=== PATIENT | female | born 1945 | race Caucasian/White ===

== ENCOUNTER → 2018-04-05 | Outpatient (CLI) | payer OTHER, MEDICARE | LOC: GMAE 10:34 | PROVIDERS: ATTEND Family Medicine | DX: Z00.01 Encounter for general adult medical examination with abnormal findings (principal) ==

== ENCOUNTER → 2018-10-03 | Outpatient (CLI) | payer OTHER, MEDICARE | LOC: GMAE 20:02 | PROVIDERS: ATTEND Family Medicine | DX: G56.92 Unspecified mononeuropathy of left upper limb (principal) ==

== ENCOUNTER → 2018-10-12 | Outpatient (CLI) | payer OTHER, MEDICARE | LOC: GMAE 09:01 | PROVIDERS: ATTEND Family Medicine | DX: G56.92 Unspecified mononeuropathy of left upper limb (principal); G56.91 Unspecified mononeuropathy of right upper limb; G60.3 Idiopathic progressive neuropathy ==

== ENCOUNTER 2019-03-16 04:51 | Emergency (ER) | payer OTHER, MEDICARE ==
[2019-03-16] MEDS ORDERED: ACETAMINOPHEN 500 MG TAB PO ONE (05:31)
--- NOTE | 2019-03-16 05:44 | ED.PDOC ---
History of Present Illness - General Chief Complaint: Trauma Stated Complaint: fall, Rt upper arm pain Time Seen by Provider: 03/16/19 05:31 Source: patient Additional Information: 73yo F who presents for R upper arm pain. The patient reports she fell over her dog this morning onto her right arm. She believes she felt something brake near the shoulder. She denies head or neck pain. No elbow, forearm or wrist dis comfort. No chest or abdominal pain. She has normal sensation in her R hand. She drove herself to the ED this morning. No other reported issues. - History of Present Illness Allergies/Adverse Reactions: Allergies NO KNOWN ALLERGY Allergy (Verified 03/16/19 05:05) Review of Systems - Review of Systems Constitutional: Denies: chills, fever EENTM: Denies: blurred vision, double vision Respiratory: Denies: cough, short of breath Cardiology: Denies: chest pain, palpitations Gastrointestinal/Abdominal: Denies: abdominal pain, vomiting Musculoskeletal: States: joint pain, muscle pain. Denies: back pain, neck pain Skin: Denies: change in color, rash Neurological: Denies: headache, numbness, paresthesia, weakness Past Medical History (General) - Patient Medical History Hx Hypertension: Yes Hx Diabetes: Yes Hx MRSA: Yes - Abdomen 2012 Surgical History: appendectomy, other - Vaccination History Hx Tetanus, Diphtheria Vaccination: No Hx Influenza Vaccination: Yes Hx Pneumococcal Vaccination: Yes - Social History Hx Tobacco Use: No Hx Alcohol Use: No Family Medical History - Family History Mother Family History: Unknown Living Status: Physical Exam - Physical Exam General Appearance: Alert, No apparent distress Neck: non-tender, full range of motion, supple Respiratory: lungs clear, normal breath sounds, no respiratory distress Cardiovascular/Chest: regular rate, rhythm, no edema Peripheral Pulses: radial,right: 2+ Gastrointestinal/Abdominal: non tender, soft Back Exam: normal inspection, no vertebral tenderness Extremity: normal capillary refill, other - Tenderness to proxima humerus. No clavicle tenderness. Elbow and wrist unremarkable. NV intact in R hand in all three nerve distributions. Neurologic: no motor/sensory deficits, alert, oriented x 3 Skin Exam: normal color, warm/dry Progress - Progress Progress: 03/16/19 06:32 Dr. Díaz notified of comminuted fracture with impaction, no dislocation. He is comfortable with plan for sling and close outpatient follow up. 03/16/19 06:51 The patient has a comminuted impacted humerus fracture. No other evident injury on exam. Her pain is well tolerated at this time. I have discussed follow up with Dr. Díaz who is comfortable with plan for sling and outpatient evaluation. Results discussed with the patient. She understands the importance of outpatient follow up. [facility] script was provided for pain control. Return warnings were discussed. It was a pleasure to care for this patient today. - EKG/XRAY/CT Xray Comments: Shoulder/Hum: Impacted comminuted prox humerus fx w/o disloc. See read. Departure - Departure Clinical Impression: Proximal humeral fracture Qualifiers: Encounter type: initial encounter Fracture type: closed Fracture morphology: unspecified fracture morphology Laterality: right Qualified Code(s): S42.201A - Unspecified fracture of upper end of right humerus, initial encounter for closed fracture Fall Qualifiers: Encounter type: initial encounter Qualified Code(s): W19.XXXA - Unspecified fall, initial encounter Time of Disposition: 06:30 Disposition: Discharge to Home or Self Care Condition: Good Departure Forms: ED Discharge - Pt. Copy, Patient Portal Self Enrollment Instructions: Shoulder Fracture (DC) Referrals: Alfredo Díaz MD [Active Staff] - 1-5 Days Comments: Shamar Medina, Physician #[id number]
--- NOTE | 2019-03-16 06:12 | RAD ---
EXAM: XR Right Humerus, 2 or More Views CLINICAL HISTORY: The patient is 73 years old and is Female; fall TECHNIQUE: Frontal and lateral views of the right humerus. COMPARISON: No relevant prior studies available. FINDINGS: BONES/JOINTS: Impacted and comminuted fracture of the proximal humerus is present. The humeral head remains located. No dislocation. SOFT TISSUES: Unremarkable. OTHER FINDINGS: The visualized lung is clear. IMPRESSION: Proximal humeral fracture. Electronically signed by: Hayley Castillo MD 03/16/2019 6:11 AM CDT
--- NOTE | 2019-03-16 06:13 | RAD ---
EXAM: XR Right Shoulder Complete, 2 or More Views CLINICAL HISTORY: The patient is 73 years old and is Female; Fall TECHNIQUE: Two or more views of the right shoulder. COMPARISON: No relevant prior studies available. FINDINGS: BONES/JOINTS: Impacted and comminuted proximal humeral fracture is present. Humeral head is located. No dislocation. SOFT TISSUES: Unremarkable. LUNGS: The visualized lung is clear. IMPRESSION: Proximal humerus fracture. Electronically signed by: Hayley Castillo MD 03/16/2019 6:11 AM CDT
[2019-03-16 06:46] VITALS: BP 179/68; TEMP 98.1; O2SAT 98
== END 2019-03-16 06:40 | disposition home or self-care (01) ==
LOC: ER 04:51
DX: S42.201A Unspecified fracture of upper end of right humerus, initial encounter for closed fracture (principal); E11.9 Type 2 diabetes mellitus without complications; I10 Essential (primary) hypertension; W01.0XXA Fall on same level from slipping, tripping and stumbling without subsequent striking against object, initial encounter; Y92.9 Unspecified place or not applicable

== ENCOUNTER → 2019-04-17 | Outpatient (CLI) | payer OTHER, MEDICARE | LOC: GMAE 10:39 | PROVIDERS: ATTEND Family Medicine | DX: Z00.00 Encounter for general adult medical examination without abnormal findings (principal) ==

== ENCOUNTER → 2020-04-22 | Outpatient (CLI) | payer OTHER, MEDICARE | LOC: GMAE 11:04 | PROVIDERS: ATTEND Family Medicine | DX: I10 Essential (primary) hypertension (principal); E11.9 Type 2 diabetes mellitus without complications; E78.2 Mixed hyperlipidemia ==